=== PATIENT | female | born 1950 | race Caucasian/White ===

== ENCOUNTER 2019-12-01 02:40 | Inpatient (IN) ==
[2019-12-01] MEDS ORDERED: Naloxone 0.4 MG/ML INJ IVP PRN (04:58)
[2019-12-01] MEDS ORDERED: 0.9 % Sodium Chloride 1,000 ML IVC SCH (05:00)
[2019-12-01 05:44] LABS: Basophils % 0.1 %; Hematocrit 32.8 % (35.3-44.9); Hemoglobin 11.5 g/dL (11.5-15.4); Immature Granulocytes % 0.4 % (0-4); Lymphocytes # 0.3 K/mcL (0.6-4.6); Lymphocytes % 2.7 %; Mean Corpuscular HGB Conc 35.1 g/dL (31.6-35.5); Mean Corpuscular Hemoglobin 30.6 pg (28.0-33.3); Mean Corpuscular Volume 87.2 fL (83.0-100.0); Mean Platelet Volume 9.5 fL (9.4-12.4); Monocytes # 0.2 K/mcL (0.0-1.3); Monocytes % 1.3 %; Neutrophils # 12.1 K/mcL (1.6-8.9); Platelet Count 391 K/mcL (140-400); Red Blood Count 3.76 M/mcL (3.82-4.97); Red Cell Distribution Width 12.8 % (11.5-14.5); Segmented Neutrophils % 95.5 %; White Blood Count 12.6 K/mcL (4.3-11.1)
[2019-12-01] MEDS ORDERED: MethylPREDNISolone 40 MG/ML VIAL IVP SCH (06:00)
[2019-12-01] MEDS: Azithromycin 500 MG in 0.9 % Sodium Chloride 250 ML IVPB SCH (06:01)
[2019-12-01 06:05] LABS: Albumin 4.2 g/dL (3.5-5.7); Albumin/Globulin Ratio 1.6 (1.1-2.2); Bilirubin,Total 0.5 mg/dL (0.3-1.0); Calcium 8.5 mg/dL (8.6-10.3); Globulin 2.6 g/dL (2.4-3.5); Potassium 4.9 mEq/L (3.5-5.1); Total Protein 6.8 g/dL (6.4-8.9); Uric Acid 5.9 mg/dL (2.3-7.6)
[2019-12-01] MEDS: *HR* Heparin 5,000 UNIT/ML VIAL SQ SCH ×3 (06:05→21:19)
[2019-12-01] MEDS: Acetaminophen 325 MG TABLET PO PRN ×2 (06:40→13:31)
[2019-12-01] MEDS: Ipratropium/Albuterol Neb 3 ML IH SCH ×5 (07:41→23:38)
[2019-12-01 10:35] LABS: Potassium,Urine 38.4 mEq/L; Sodium, Urine 35.6 mEq/L
[2019-12-01 10:36] LABS: Bacteria,Urine Few per hpf (None-Few); Bilirubin,Urine Negative (Negative); Blood,Urine Trace (Negative); Clarity,Urine Clear (Clear); Color,Urine Colorless (Yellow); Glucose,Urine (UA) Normal (Normal); Ketones,Urine Negative (Negative); Leukocyte Esterase,Urine Negative (Negative); Nitrite,Urine Negative (Negative); Protein,Urine 50 mg/dL (Neg-Trace); RBC,Urine 0-3 per hpf (0-3); Specific Gravity,Urine 1.008 (1.010-1.025); Squamous Epithelial Cell,Urine Few per hpf (None-Few); Urobilinogen,Urine Normal (Normal); WBC,Urine 0-3 per hpf (0-3)
[2019-12-01 11:13] LABS: Thyroid Stimulating Hormone 1.094 mcIU/mL (0.340-5.600)
[2019-12-01] MEDS ORDERED: Nitroglycerin 0.4 MG TAB.SUBL SL PRN (17:06)
[2019-12-01] MEDS: DilTIAZem CD (24hr) 120 MG CAP.ER.24H PO SCH (17:53)
[2019-12-01] MEDS: MethylPREDNISolone 40 MG/ML VIAL IVP SCH (17:53)
[2019-12-01] MEDS: Gabapentin 300 MG CAPSULE PO SCH (21:19)
[2019-12-01] MEDS: *HR* OxyCODONE/APAP 7.5/325 TABLET PO SCH (21:19)
[2019-12-02] MEDS: Ipratropium/Albuterol Neb 3 ML IH SCH ×6 (03:20→23:20)
[2019-12-02 04:53] LABS: Basophils % 0.1 %; Hematocrit 31.2 % (35.3-44.9); Hemoglobin 10.6 g/dL (11.5-15.4); Immature Granulocytes % 0.4 % (0-4); Lymphocytes # 0.8 K/mcL (0.6-4.6); Lymphocytes % 7.1 %; Mean Corpuscular Hemoglobin 30.1 pg (28.0-33.3); Mean Corpuscular Volume 88.6 fL (83.0-100.0); Mean Platelet Volume 9.5 fL (9.4-12.4); Monocytes # 0.7 K/mcL (0.0-1.3); Monocytes % 6.1 %; Neutrophils # 10.1 K/mcL (1.6-8.9); Platelet Count 397 K/mcL (140-400); Red Blood Count 3.52 M/mcL (3.82-4.97); Red Cell Distribution Width 13.2 % (11.5-14.5); Segmented Neutrophils % 86.3 %; White Blood Count 11.7 K/mcL (4.3-11.1)
[2019-12-02 05:12] LABS: BUN/Creatinine Ratio 15 (6-26); Blood Urea Nitrogen 16 mg/dL (8-23); Calcium 8.6 mg/dL (8.6-10.3); Carbon Dioxide 22 mEq/L (23-29); Chloride 91 mEq/L (98-107); Glucose 131 mg/dL (70-105); Magnesium 1.7 mg/dL (1.6-2.6); Osmolality,Calculated 257 (280-300); Phosphorous 2.9 mg/dL (2.7-4.5); Potassium 4.6 mEq/L (3.5-5.1); Sodium 122 mEq/L (136-145); eGFR For African Americans > 60 (> 60); eGFR For Non-African Americans 51 (> 60)
[2019-12-02] MEDS: *HR* Heparin 5,000 UNIT/ML VIAL SQ SCH ×3 (06:23→21:16)
[2019-12-02] MEDS: MethylPREDNISolone 40 MG/ML VIAL IVP SCH (06:23)
[2019-12-02] MEDS: Azithromycin 500 MG in 0.9 % Sodium Chloride 250 ML IVPB SCH (06:24)
[2019-12-02 08:49] LABS: Estimated Average Glucose 126 mg/dl
[2019-12-02] MEDS: Gabapentin 300 MG CAPSULE PO SCH ×2 (08:50→21:16)
[2019-12-02] MEDS: Aspirin Enteric Coated 81 MG Tablet PO SCH (08:50)
[2019-12-02] MEDS: *HR* OxyCODONE/APAP 7.5/325 TABLET PO SCH ×3 (08:51→21:16)
[2019-12-02] MEDS: DilTIAZem CD (24hr) 120 MG CAP.ER.24H PO SCH (08:51)
[2019-12-02] MEDS ORDERED: NON-FORMULARY MEDICATION 1 EACH EACH (Alendronate Sodium [Fosamax] 70 MG) PO SCH (17:06)
[2019-12-02] MEDS ORDERED: Methyl Salicylate/Menthol 57 APPL/57 GM TUBE TP PRN (21:03)
[2019-12-03] MEDS: Ipratropium/Albuterol Neb 3 ML IH SCH ×3 (03:40→11:11)
[2019-12-03 04:25] LABS: Basophils % 0.1 %; Hematocrit 29.8 % (35.3-44.9); Hemoglobin 9.9 g/dL (11.5-15.4); Immature Granulocytes % 0.5 % (0-4); Lymphocytes # 1.3 K/mcL (0.6-4.6); Lymphocytes % 7.8 %; Mean Corpuscular HGB Conc 33.2 g/dL (31.6-35.5); Mean Corpuscular Hemoglobin 30.1 pg (28.0-33.3); Mean Corpuscular Volume 90.6 fL (83.0-100.0); Mean Platelet Volume 9.7 fL (9.4-12.4); Monocytes # 1.5 K/mcL (0.0-1.3); Monocytes % 8.6 %; Neutrophils # 14.1 K/mcL (1.6-8.9); Platelet Count 371 K/mcL (140-400); Red Blood Count 3.29 M/mcL (3.82-4.97); Red Cell Distribution Width 13.5 % (11.5-14.5)
[2019-12-03 04:39] LABS: Calcium 8.7 mg/dL (8.6-10.3); Magnesium 2.1 mg/dL (1.6-2.6); Phosphorous 2.2 mg/dL (2.7-4.5); Potassium 4.4 mEq/L (3.5-5.1)
[2019-12-03] MEDS: *HR* Heparin 5,000 UNIT/ML VIAL SQ SCH (06:00)
[2019-12-03] MEDS: Gabapentin 300 MG CAPSULE PO SCH (08:00)
[2019-12-03] MEDS: *HR* OxyCODONE/APAP 7.5/325 TABLET PO SCH (08:00)
[2019-12-03] MEDS: Aspirin Enteric Coated 81 MG Tablet PO SCH (08:00)
[2019-12-03] MEDS ORDERED: DilTIAZem CD (24hr) 180 MG CAP.ER.24H PO SCH (09:00)
[2019-12-03] MEDS ORDERED: predniSONE 20 MG TABLET PO SCH (09:00)
[2019-12-03] MEDS ORDERED: Azithromycin 250 MG TABLET PO SCH (09:00)
[2019-12-03] MEDS ORDERED: Loratadine 10 MG TABLET PO SCH (09:00)
[2019-12-03] MEDS ORDERED: BuPROPion SR (12 HR) 150 MG TABLET PO SCH (09:00)
[2019-12-03 09:32] VITALS: BP 108/58
== END 2019-12-03 14:00 | disposition home or self-care (01) | DRG 426 ==
LOC: 2ANU → SUATTDRO 04:21
PROVIDERS: ADMIT Internal Medicine; ATTEND Internal Medicine